=== PATIENT | female | born 1965 | race Caucasian/White ===

== ENCOUNTER 2023-11-26 11:09 | Outpatient (AMB) | payer BC, SELFPAY ==
--- NOTE | 2023-11-26 11:11 | MHC.OFFWIV ---
Intake Vital Signs 11/26/23 11:13 Height 5 ft 1 in BP 122/76 Blood Pressure Location Rt brachial Position Sitting Pulse 76 Pulse Source Pulse Oximeter Pulse Oximetry (%) 96 Oxygen Delivery Method Room Air Intake Visit Reasons: [employer] ?Metal shaving in finger Intake Note: pt is here for Metal shaving in finger Patient Tobacco Use Status: Never used Tobacco Allergies erythromycin base [ERYTHROMYCIN BASE] Allergy (Unknown, Verified 11/26/23 11:23) N/V/D Medication List - Last Reconciled 11/26/23 by MADI Hou No Known Home Meds Do you need a note to return to daycare/school/sports/work: No HPI HPI Comments History of Present Illness Details 58-YEAR-OLD FEMALE HERE TODAY WITH CONCERNS FOR A FOREIGN BODY IN HER LEFT MIDDLE FINGER. SHE REPORTS THAT SHE WENT TO GO GRAB A METAL PIECE OF EQUIPMENT AND FELT LIKE A PIECE OF IT ENTERED HER MIDDLE FINGER. INITIALLY DID NOT THINK ANYTHING MORE OF THAT. THIS OCCURRED ON TUESDAY OR TUESDAY. THE FOLLOWING DAY SHE STARTED WITH SENSATION OF AN INGROWN NAIL IN THE LEFT MIDDLE FINGER. SINCE THAT TIME THE SWELLING AND PAIN HAS BECOME WORSE. SHE HAS TRIED TO SQUEEZE THE AREA AND REPORTS THAT PUS WAS EXPRESSED. SHE HAD SOME AZITHROMYCIN ON HAND AT HOME, TOOK A DOSE LAST NIGHT. REPORTS UTD ON TDAP IN THE LAST [address] SMALLWOOD LAST VISIT > 5 YEARS AGO EXAM: PARONYCHIA OF LEFT MIDDLE FINGER, UNABLE TO TOLERATE PRESSURE, NO PUS OR APPARENT FLUCTUANCE. VASCULARLY INTACT, NAIL INTACT. PLAN: XRAY TODAY: FINAL READ N/A AT CLOSE OF NOTE. I DID REVIEW THE FILM. NO OBVIOUS FOREIGN BODY. CEPHALEXIN 500 MG P.O. Q.8 HOURS X7 DAYS OFFERED IM KETOROLAC INJECTION, DECLINED. RX DICLOFENAC BID PRN FOR PAIN. WARM WATER AND EPSOM SALT SOAKS SEVERAL TIMES PER DAY RETURN TO OFFICE ON TUESDAY IF IT CONTINUES TO BE SWOLLEN, CONSIDER I AND D AT THAT TIME. ADVISED FOR PATIENT TO STOP SQUEEZING AND POKING AT IT THIS WILL DELAY HEALING. THIS NOTE IS CONSTRUCTED USING VOICE RECOGNITION SOFTWARE. 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 TOTAL TIME SPENT CARING FOR THE PATIENT TODAY WAS 30 MINUTES. THIS INCLUDES TIME SPENT BEFORE THE VISIT REVIEWING THE CHART, TIME SPENT DURING THE VISIT, AND TIME SPENT AFTER THE VISIT ON DOCUMENTATION [facility] Social History Patient Tobacco Use Status: Never used Tobacco Physical Exam Vital Signs: Last Vital Signs Pulse 76 11/26/23 11:13 BP 122/76 11/26/23 11:13 Pulse Ox 96 11/26/23 11:13 Oxygen Delivery Method Room Air 11/26/23 11:13 Assessment & Plan Assessment & Plan (1) Paronychia of left middle finger: Code(s): L03.012 - Cellulitis of left finger Plan: . Orders: Orders XR finger LT min 2V Today L03.012 - Cellulitis of left finger, S60.459A - Superficial foreign body of unspecified finger, initial encounter Medications: New cephalexin 500 mg PO Q8H 21 caps 0RF diclofenac sodium 50 mg PO Q12H PRN 60 tabs 0RF pain Coding Level of Care Code Est Pt Level 4 (04494) Diagnoses Paronychia of left middle finger L03.012
[2023-11-26 11:13] VITALS: BP 122/76; PULSE 76; O2SAT 96
== END 2023-11-26 13:50 | disposition home or self-care (01) ==
PROVIDERS: PCP Internal Medicine; Visit Provider Nurse Practitioner Family
DX: L03.012 Cellulitis of left finger (principal)

== ENCOUNTER → 2023-11-26 11:09 | Outpatient (BNVA) | payer BC, SELFPAY | PROVIDERS: PCP Internal Medicine ==

== ENCOUNTER 2023-11-26 11:31 | Outpatient (REF) | payer BC, SELFPAY ==
--- NOTE | ~2023-11-26 | XR_ITS ---
EXAMINATION: XR third finger, LEFT CLINICAL INFORMATION: Cellulitis COMPARISON: None available. TECHNIQUE: Three views of the left middle finger and single view of left hand. FINDINGS: The bones and soft tissues are normal. No fracture. Alignment is anatomic. Joint spaces are maintained. No evidence of foreign bodies in the soft tissues XR/XR finger LT min 2V IMPRESSION: Normal finger radiographs. Electronically signed by: Bennie Mcfarland MD 11/26/2023 07:37 PM EDT
== END 2023-11-26 11:32 | disposition home or self-care (01) ==
LOC: HO.HMGCX 11:31
PROVIDERS: PCP Internal Medicine; Visit Provider Nurse Practitioner Family
DX: L03.012 Cellulitis of left finger (principal); S60.453A Superficial foreign body of left middle finger, initial encounter
CPT/HCPCS: 73140

== ENCOUNTER 2024-11-05 12:08 | Emergency (ER) | payer BC, SELFPAY ==
--- NOTE | ~2024-11-05 | XR_ITS ---
EXAMINATION: XR CHEST CLINICAL INFORMATION: Left sided chest pain COMPARISON: None available. TECHNIQUE: 2 views of the chest were obtained. FINDINGS: There is mild blunting of the left calcific angle. Nodular density in the lateral right lung base could represent an endon vessel versus pulmonary nodule. If it is a nodule, and is likely calcified. Heart size normal. XR/XR chest 2V IMPRESSION: A.C. margins of the left calcific angle suggest dural thickening or trace effusion. Possible nodule in the lateral left lung base could represent a calcified granuloma. Electronically signed by: Dimitry Wise MD 11/05/2024 12:40 PM EDT
--- NOTE | ~2024-11-05 | CT_ITS ---
CLINICAL HISTORY: pain, SOB, concern of PE CT angiography chest with contrast. 3D Postprocessing. Comparison: None provided Findings: Motion and streak artifact limit evaluation. The heart size is normal. RV/LV ratio is normal. The thoracic aorta is normal caliber. No central or large proximal pulmonary emboli. Remaining pulmonary arteries are poorly opacified, not well evaluated. Small hiatal hernia. Lingular atelectasis. Dense left lower lobe consolidation avulsed may be related to atelectasis, developing pneumonia not excluded. Small loculated left effusion. Right upper and middle lobe pulmonary nodules measuring 4 mm. Per Fleischner criteria: Low-risk patients: No routine follow-up required. High-risk patients: Optional CT at 12 months. Hepatomegaly with steatosis Thickening of the left adrenal gland, nonspecific. The bones are intact. IMPRESSION: 1. No central or large proximal pulmonary emboli. Remaining pulmonary arteries are poorly opacified, not well evaluated. 2. Dense left lower lobe consolidation avulsed may be related to atelectasis, developing pneumonia not excluded. 3. Small loculated left effusion. This document has been electronically signed by: Chucky Gill MD on 11/05/2024 18:30:18
--- NOTE | 2024-11-05 12:09 | ECG_ITS ---
Test Reason : CP Blood Pressure : */* mmHG Vent. Rate : 68 BPM Atrial Rate : 68 BPM P-R Int : 138 ms QRS Dur : 92 ms QT Int : 422 ms P-R-T Axes : 15 13 9 degrees QTcB Int : 448 ms Normal sinus rhythm Cannot rule out Anterior infarct , age undetermined Abnormal ECG When compared with ECG of 24-Mar-2013 17:39, No significant change was found Referred By: Kassandra Begum Electronically Signed By: Cooper Page
[2024-11-05 12:19] VITALS: BP 210/93; PULSE 71; RESP 16; TEMP 36.1; O2SAT 97; BMI 39.5
--- NOTE | 2024-11-05 12:21 | ED_ITS ---
HPI - Chest Pain General Chief Complaint: Chest Pain Stated Complaint: CP and under L breast Time Seen by Provider: 11/05/24 15:30 Source: patient Mode of arrival: ambulatory Limitations: no limitations History of Present Illness ED Provider: Crystal Strong PA-C HPI narrative: Patient is a 59 year old assigned female at with a history of HTN for which she is not on medications presenting to the emergency department today with 3 days of left sided chest pain worse with deep breathing. Patient states that over the last 3 days she has had left sided chest pain that goes up into her clavicle and under her left breast. Patient states that the pain is worse with deep breathing and laying flat. Patient denies any recent travel or smoking tobacco but does smoke marijuana. Patient states that she works a sedentary job. Related Data Previous Rx's ?Medication ?Instructions ?Recorded cephalexin 500 mg capsule 500 mg PO Q8H #21 caps 11/25 diclofenac sodium 50 mg 50 mg PO Q12H PRN pain #60 t abs 11/26/23 tablet,delayed release amoxicillin 875 mg-potassium 1 tab PO Q12H #14 tabs clavulanate 125 mg tablet azithromycin 250 mg tablet See Rx Instructions PO .COM PLEX #6 11/05/24 tabs Allergies Allergy/AdvReac Type Severity Reaction Status Date / Time erythromycin base Allergy Unknown N/V/D Verified 11/05/24 12:22 (ERYTHROMYCIN BASE) Review of Systems 2 Constitutional: Constitutional: Reports as per HPI Eyes: Eyes: Reports as per HPI ENT: Reports as per HPI Cardiovascular: Cardiovascular: Reports as per HPI Respiratory: Respiratory: Reports as per HPI Gastrointestinal: Gastrointestinal: Reports as per HPI Genitourinary: Genitourinary: Reports as per HPI Musculoskeletal: Musculoskeletal: Reports as per HPI Integumentary/Breasts: Skin/Breast: Reports as per HPI Neurologic: Reports as per HPI Psychiatric: Psychiatric: Reports as per HPI Endocrine: Endocrine: Reports as per HPI Hematologic/Lymphatic: Hematologic/Lymphatic: Reports as per HPI Allergic/Immunologic: Allergic/Immunologic: Reports as per HPI PMF Past Medical History Attestation statement: The following information was validated with the patient. Source: old records reviewed and nursing notes reviewed Social History Social History Patient Tobacco Use Status: Never used Tobacco Advance Directives: No Advance Directives Information Provided: Yes Physical Exam 2 Vital Signs: Vital Signs: Last Vital Signs Temp 98.6 F 11/05/24 18:30 Pulse 72 11/05/24 18:30 Resp 12 11/05/24 18:30 BP 196/85 H 11/05/24 18:30 Pulse Ox 95 11/05/24 18:30 O2 Del Method Room Air 11/05/24 18:30 BMI result Body Mass Index 39.5 Const: General: cooperative, no acute distress, alert and awake Nutritional Appearance: well nourished Orientation/consciousness: patient oriented x3 HEENT: Head: Yes normal to inspection and Yes atraumatic Ears: hearing grossly normal bilaterally and external ears normal General nose exam: Normal external nose present, no nasal discharge noted and no epistaxis Face and sinus: Yes normal facial exam, No abrasion and No laceration Mouth: Normal oral and palatal mucosa present, no drooling and no muffled voice Eyes: General: appearance normal, both eyes and all related structures P eriorbital: periorbital findings normal Eyelids: Yes eyelids normal C onjunctivae: conjunctivae normal Pupils: Equal, round and reactive pupils present EOM: EOMs intact bilaterally Neck: Neck: Yes normal visual inspection and Yes full ROM Resp: Effort & Inspection: normal respiratory effort and able to speak in complete sentences Neuro: General: patient oriented x3, moves all extremities and CN's II-XI intact bilaterally Cranial nerves: Yes Equal, round and reactive pupils present Cognition (Neuro): normal cognition Extrem: General: Yes normal to inspection, Yes full ROM and Yes capillary refill normal Psych: Appearance: grossly normal Mental Status: mental status grossly normal Affect: normal affect Attitude: cooperative Thought process: N ormal thought process present Thought content: Normal thought content present Insight: Good insight present (Psych) Course Course Course Narrative: This is a Rapid Medical Examination (RME) performed by Scott Begum PA-C in triage. Full HPI, ROS, assessment and treatment plan per primary provider in the Main ED. Hx: 59 yo F here for eval of L sided chest pain intermittent x4 days. no URI sx. no recent travel/long car rides. Plan: labs, ekg, cxr Reevaluation(s) Reevaluation #1: Patient received in sign-out at change of shift pending CT angiography to rule out PE. The CT scan does show no evidence of large PE but does show a dense consolidation in the left lower lobe that could be developing pneumonia versus atelectasis. When I discussed with the patient, she reports pain in the left lower chest behind her breast and substance subjective fevers over the weekend. She denies any cough or shortness of breath but does have pain with inspiration. We will treat her for a developing pneumonia, she was not septic, or hypoxic. She does not require admission. I advised her to follow up with her PCP as she may benefit from repeat imaging in 6 months' time Time: 18:45 Medications Administered Discontinued Medications Generic Name Dose Route Start Last Admin Trade Name Freq PRN Reason Stop Dose Admin Iohexol 100 ml 11/05/24 17:10 11/05/24 17:28 Iohexol 350 Mg/Ml 100 Ml Infus..Btl IV 11/05/24 17:11 65 ml ONCE ONE Administration Medical Decision Making Medical Decision Making [facility] Narrative: Patient is a 59 year old assigned female at with a history of HTN for which she is not on medications presenting to the emergency department today with 3 days of left sided chest pain worse with deep breathing. Patient's physical exam was as noted in the physical exam portion of this note. Patient's blood work was unremarkable. Patient's EKG was unremarkable. Patient's chest x-ray showed no acute process. Patient's CT PE study is pending at this time. Patient's clinical presentation is most consistent with costochondritis vs. pleurisy however, given her presentation, will await CT PE result to officially rule out PE. I explained my physical exam findings as well as all test results to the patient. I answered all questions asked by the patient. Patient received IV Toradol while in the department. Patient signed out to SHIV Grant pending CT PE read. Differential Diagnosis Differential Diagnoses: The differential diagnosis associated with the presentation includes Costochondritis PE Pleurisy Chest pain NSTEMI STEMI Admission/Observation Consideration of admission/observation: Escalation of care including admission/observation considered Patient's disposition will be determined after CT PE read. Lab Data [facility] Lab Attestation statement: I reviewed the patient's lab results. My interpretation of these results are in the MDM Rationale portion of this note. 11/05/24 12:38 11/05/24 12:38 Labs: Lab Results 11/05/24 11/05/24 11/05/24 Range/Units 12:38 15:34 15:44 WBC 10.0 (4.8-10.8) X10*3/uL RBC 4.21 (4.20-5.50) X10*6/uL Hgb 12.2 (12.0-16.0) g/dl Hct 37.1 (37.0-47.0) % MCV 88.1 (80.0-98.0) fL MCH 29.0 (27.0-33.0) pg MCHC 32.9 (31.0-35.0) g/dl RDW 13.9 (11.0-16.0) % Plt Count 297 (160-400) X10*3/uL MPV 9.4 (9.4-12.3) fL Immature Gran % (Auto) 0.6 H (0.0-0.4) % Neut % (Auto) 73.2 H (45-73) % Lymph % (Auto) 17.6 L (20-40) % [place] % (Auto) 6.4 (2-11) % Eos % (Auto) 1.9 (0-4) % Baso % (Auto) 0.3 (0-2) % Lymph # (Auto) 1.8 (1.2-4.9) X10*3/uL [place] # (Auto) 0.6 (0.1-1.2) X10*3/uL Eos # (Auto) 0.2 (0.0-0.4) X10*3/uL Baso # (Auto) 0.0 (0.0-0.2) X10*3/uL Abs Immat Gran (auto) 0.06 H (0.00-0.03) X10*3/uL Absolute Neuts (auto) 7.3 (2.0-8.3) x10*3/uL Absolute Nucleated RBC 0.000 (0.0-0.012) X10*3/uL Nucleated RBC % (auto) 0.0 (0.0-0.2) /100WBC Sodium 141 (135-145) mmol/L Potassium 3.7 (3.3-5.1) mmol/L Chloride 104 (96-108) mmol/L Carbon Dioxide 28 (22-29) mmol/L Anion Gap 13 (12-20) BUN 9 (9-16) mg/dL Creatinine 0.66 (0.5-1.4) mg/dL Estim Creat Clear Calc 110.7 Estimated GFR > 60 Random Glucose 139 H (60-115) mg/dL Calcium 9.1 (8.4-10.2) mg/dL Magnesium 2.1 (1.6-2.6) mg/dL Total Bilirubin 0.4 (0.0-1.0) mg/dL AST 24 (5-31) U/L ALT 22 (0-31) U/L Alkaline Phosphatase 81 (39-117) U/L Troponin I High Sens < 2.7 < 2.7 (<3.5-17.0) ng/L NT-Pro-B Natriuret Pep 186.3 (<300) pg/mL Total Protein 7.7 (6.5-8.0) g/dL Albumin 4.1 (3.5-5.0) g/dL Lipase 19 (8-78) U/L Independent Interpretation I performed an independent interpretation of an: EKG and Plain X-Ray Interpretation: My interpretation is in agreement with the radiologist's impression of this imaging study. L Reason for Exam: L sided chest pain EXAMINATION: XR CHEST CLINICAL INFORMATION: Left sided chest pain COMPARISON: None available. TECHNIQUE: 2 views of the chest were obtained. FINDINGS: There is mild blunting of the left calcific angle. Nodular density in the lateral right lung base could represent an endon vessel versus pulmonary nodule. If it is a nodule, and is likely calcified. Heart size normal. XR/XR chest 2V IMPRESSION: A.C. margins of the left calcific angle suggest dural thickening or trace effusion. Possible nodule in the lateral left lung base could represent a calcified granuloma. Electronically signed by: Dimitry Wise MD 11/05/2024 12:40 PM EDT Dictated By: Dimitry Wise MD Signed By: Electronically signed by Dimitry Wise MD 11/05/24 1240 I independently interpreted this EKG and am in agreement with the below findings: Vent. Rate: 68 BPM Atrial Rate: 68 BPM P-R Int: 138 ms QRS Dur: 92 ms QT Int: 422 ms P-R-T Axes: 15 13 9 degrees QTcB Int: 448 ms Normal sinus rhythm When compared with ECG of 24-Mar-2013 17:39, No significant change was found DD/ [id number] Radiology Impression Discussion of test interpretation with radiology: I have reviewed the radiologist's reading. Radiologist Impression: Findings: Motion and streak artifact limit evaluation. The heart size is normal. RV/LV ratio is normal. The thoracic aorta is normal caliber. No central or large proximal pulmonary emboli. Remaining pulmonary arteries are poorly opacified, not well evaluated. Small hiatal hernia. Lingular atelectasis. Dense left lower lobe consolidation avulsed may be related to atelectasis, developing pneumonia not excluded. Small loculated left effusion. Right upper and middle lobe pulmonary nodules measuring 4 mm. Per Fleischner criteria: Low-risk patients: No routine follow-up required. High-risk patients: Optional CT at 12 months. Hepatomegaly with steatosis Thickening of the left adrenal gland, nonspecific. The bones are intact. IMPRESSION: 1. No central or large proximal pulmonary emboli. Remaining pulmonary arteries are poorly opacified, not well evaluated. 2. Dense left lower lobe consolidation avulsed may be related to atelectasis, developing pneumonia not excluded. 3. Small loculated left effusion. This document has been electronically signed by: Chucky Gill MD on 11/05/2024 18:30:18 Discharge Plan Discharge Clinical Impression: Chest pain Patient Disposition: Home, Self-Care Instructions: Community Acquired Pneumonia (ED), Chest Wall Pain (ED) Additional Instructions: Your workup in the ER was reassuring pain Your CT scan did show a possible pneumonia in the left lower lung that could be contributing to your pain There was no blood clot. I do recommend following up with your primary doctor as you may require repeat imaging in about 6 months In the meantime I recommend taking both antibiotics azithromycin and Augmentin to treat community-acquired pneumonia Take these medications with food as they may cause upset stomach Return for new or worsening symptoms Prescriptions: New azithromycin 250 mg tablet See Rx Instructions .ROUTE .COMPLEX Qty: 6 0RF Rx Instructions: For 250 mg dose pack: take 500 mg today (day 1), then 250 mg for 4 days (days 2-5) amoxicillin-pot clavulanate 875-125 mg tablet 1 tab PO Q12H Qty: 14 0RF No Action cephalexin 500 mg capsule 500 mg PO Q8H Qty: 21 0RF diclofenac sodium 50 mg tablet,delayed release (DR/EC) 50 mg PO Q12H PRN (Reason: pain) Qty: 60 0RF Print Language: Austrian
[2024-11-05 13:06] LABS: MANUAL DIFF FLAG NO
[2024-11-05 13:07] LABS: Hematocrit 37.1 % (37.0-47.0); Hemoglobin 12.2 g/dl (12.0-16.0); Imm Gran Abs Auto 0.06 X10*3/uL (0.00-0.03); Imm Gran Pct Auto 0.6 % (0.0-0.4); Lymphocytes Absolute Auto 1.8 X10*3/uL (1.2-4.9); Mean Corpuscular HGB Conc 32.9 g/dl (31.0-35.0); Mean Corpuscular Hemoglobin 29.0 pg (27.0-33.0); Mean Corpuscular Volume 88.1 fL (80.0-98.0); NRBC Abs Auto 0.000 X10*3/uL (0.0-0.012); NRBC Pct Auto 0.0 /100WBC (0.0-0.2); Platelet Count 297 X10*3/uL (160-400); Red Blood Count 4.21 X10*6/uL (4.20-5.50); White Blood Count 10.0 X10*3/uL (4.8-10.8)
[2024-11-05 13:25] LABS: Alanine Aminotransferase 22 U/L (0-31); Albumin Level 4.1 g/dL (3.5-5.0); Alkaline Phosphatase 81 U/L (39-117); Anion Gap 13 (12-20); Aspartate Amino Transferase 24 U/L (5-31); Blood Urea Nitrogen 9 mg/dL (9-16); Calcium 9.1 mg/dL (8.4-10.2); Carbon Dioxide 28 mmol/L (22-29); Chloride 104 mmol/L (96-108); Creatinine Clr Calc Pharmacy 110.7; Estimated Glomerular Filt Rate > 60; Lipase 19 U/L (8-78); Magnesium 2.1 mg/dL (1.6-2.6); Potassium 3.7 mmol/L (3.3-5.1); Sodium 141 mmol/L (135-145); Total Protein 7.7 g/dL (6.5-8.0)
[2024-11-05 13:33] LABS: Troponin-I High Sensitivity < 2.7 ng/L (<3.5-17.0)
[2024-11-05 15:28] VITALS: BP 197/99; PULSE 75; RESP 14; TEMP 36.8; O2SAT 98
[2024-11-05 16:00] LABS: Troponin-I High Sensitivity < 2.7 ng/L (<3.5-17.0)
[2024-11-05 16:03] VITALS: BP 186/86
[2024-11-05 16:18] LABS: NT Pro B Type Natriuretic Pept 186.3 pg/mL (<300)
[2024-11-05 16:26] VITALS: BP 176/81; PULSE 66; RESP 14; TEMP 36.8; O2SAT 98
[2024-11-05] MEDS: iohexoL 350 MG/ML 100 ML INFUS..BTL IV (17:28)
[2024-11-05 18:30] VITALS: BP 196/85; PULSE 72; RESP 12; TEMP 37; O2SAT 95
[2024-11-05 19:04] VITALS: BP 196/85; PULSE 72; RESP 12; TEMP 37; O2SAT 95
== END 2024-11-05 19:05 | disposition home or self-care (01) ==
PROVIDERS: Physician Assistant Medical; Emergency Provider Emergency Medicine
DX: R07.9 Chest pain, unspecified (principal); I10 Essential (primary) hypertension
CPT/HCPCS: 36415; 71046; 71275; 80053; 83690; 83735; 83880; 84484; 85025; 93005; 99285; Q9967

== ENCOUNTER → 2024-11-05 12:09 | Outpatient (BNV) | payer BC, SELFPAY | PROVIDERS: Emergency Provider Emergency Medicine; Visit Provider Internal Medicine Cardiovascular Disease | DX: R94.31 Abnormal electrocardiogram [ECG] [EKG] (principal); R07.89 Other chest pain | CPT/HCPCS: 93010 ==

== ENCOUNTER → 2024-11-05 12:22 | Outpatient (BNV) | payer BC, SELFPAY | PROVIDERS: Visit Provider Radiology Diagnostic Radiology | DX: J90 Pleural effusion, not elsewhere classified (principal); R07.89 Other chest pain | CPT/HCPCS: 71046; 71275 ==